=== PATIENT | female | born 1995 | race Caucasian/White ===

== ENCOUNTER 2020-02-11 18:03 | Emergency (ER) | payer BC, SELFPAY ==
--- NOTE | 2020-02-11 18:09 | ED.GENADULT ---
HPI - General Adult General Chief complaint: Chest Pain Stated complaint: rib cage hurts Time Seen by Provider: 02/11/20 18:21 Source: patient Mode of arrival: ambulatory Limitations: no limitations History of Present Illness HPI narrative: 24-year-old female patient presents to the [facility] with complaints of rib cage pain for the past 3 days. Patient states the pain starts with a small little bump that she is noticed right in the middle of the chest and the pain radiates over to the right side that wraps around to the back. Patient states she has had a cough that has been mild for the last couple of days. Denies any fevers, shortness of breath. Patient denies any injury to the chest that she is aware of. Patient states she has taken some Tylenol and ibuprofen for her symptoms. Patient states she has also been lifting a lot of heavy boxes recently at work. Related Data Home Medications Medication Instructions Recorded Confirmed No Home Medications 02/11/20 02/11/20 Allergies Allergy/AdvReac Type Severity Reaction Status Date / Time No Known Allergies Allergy Verified 02/11/20 18:19 Review of Systems Review of Systems: Narrative: CONSTITUTIONAL: Denies fever, chills, or sweats. EYES: Denies visual changes, redness, or discharge. ENT: Denies rhinorrhea, congestion, sore throat, or otalgia. CARDIOVASCULAR: Positive midsternal chest pain that radiates over to the right side around the rib cage into the back. No palpitations, or edema. RESPIRATORY: Denies cough or dyspnea. GASTROINTESTINAL: Denies abdominal pain, nausea, vomiting, or diarrhea. GENITOURINARY: Denies dysuria or hematuria. SKIN: Denies rash or itching. MUSCULOSKELETAL: Denies back pain, joint pain, or myalgia. NEUROLOGIC: Denies headache, numbness, or weakness. PSYCHIATRIC: Denies anxiety or depression. PMFSH Comments At the time of my signature I agree with nursing past medical history, surgical, social, and family history. There is no relevant family history pertinent to the presenting complaint. Exam Narrative: Exam Narrative: GENERAL: Well-appearing, well-nourished, and in no acute distress. HEAD: Normocephalic, atraumatic. EYES: PERRLA and EOMI. ENT: Nares clear, no rhinorrhea or epistaxis. Mucous membranes moist. NECK: Supple. No lymphadenopathy CHEST: Clear to auscultation. No respiratory distress. There is an obvious muscle spasm palpated to the middle sternum. No point tenderness noted to the sternum or the rib cage. Patient does have excellent range of motion to the thoracic area and able to twist both sides. Patient states that the twisting does feel like a pulling motion when she twists to the left. There is no obvious bruising or open wounds noted to this area. HEART: Regular rate and rhythm. No murmur heard. Normal peripheral pulses. ABDOMEN: Soft, nontender, nondistended, normal active bowel sounds. EXTREMITIES: Normal range of motion. No edema. SKIN: Warm, dry, no rash. NEURO: No focal deficits. Alert and oriented x3. Course Vital Signs Vital signs: Vital Signs Temperature 36.8 C 02/11/20 18:13 Pulse Rate 79 02/11/20 18:13 Respiratory Rate 18 02/11/20 18:13 Blood Pressure 148/90 H 02/11/20 18:13 Pulse Oximetry 100 02/11/20 18:13 Temperature 36.8 C 02/11/20 18:13 Pulse Rate 79 02/11/20 18:13 Respiratory Rate 18 02/11/20 18:13 Blood Pressure 148/90 H 02/11/20 18:13 Pulse Oximetry 100 02/11/20 18:13 Vital signs reviewed. Medical Decision Making Differential Diagnosis Differential Diagnosis: Differential diagnosis: STEMI/ACS, AAA, PE, spontaneous pneumothorax, cardiac tamponade, esophageal rupture, pneumonia, GERD, muscle-skeletal pain or trauma, endocarditis, cocaine-related ischemia, pericarditis, URI, bronchitis. Discussed with patient most likely this is a musculoskeletal pain she most likely pulled a muscle to the area could have been from either lifting or could be from coughing. Disc
[2020-02-11 18:13] VITALS: BP 148/90; PULSE 79; RESP 18; TEMP 36.8; O2SAT 100
== END 2020-02-11 18:29 | disposition home or self-care (01) ==
PROVIDERS: Emergency Provider Nurse Practitioner Family; PCP Family Medicine
DX: S29.011A Strain of muscle and tendon of front wall of thorax, initial encounter (principal); X58.XXXA Exposure to other specified factors, initial encounter
CPT/HCPCS: 99211; G0463